=== PATIENT | male | born 1950 | race Caucasian/White ===

== ENCOUNTER → 2021-12-20 | Day surgery (SDC) | payer MEDICARE, OTHER ==
[~2021-12-20] VITALS: Ht 172.7 cm; Wt 122.0 kg
[~2021-12-20] MED LIST: APIX5TAB PO; ATOR40TA59 PO; BUSP10TA PO; CLON2TAB9 PO; DOXE150C2 PO; HYDR-2868 PO; HYDR25TA PO; HYDR25TA10 PO; IV RINGERS,LACTATED 1000ML 1,000 ML IV SCH; LOSA1TAB22 PO; METO25TA2 PO; OXCA600T9 PO; PRAZ5CAP2 PO; PROPOFOL 10 MG/ML (20ML) VIAL. IV ONE; TAMS0.4C97 PO
[2021-12-20 07:40] VITALS: BP 174/81
[2021-12-20 09:08] VITALS: BP 142/74
--- NOTE | 2021-12-23 15:07 | PATHOLOGY ---
[facility] Accession Number: [id number] . 01 Material submitted: . PART A: gastrointestinal site - GASTRIC BODY POLYP BIOPSY PART B: esophagus - DISTAL ESOPHAGUS BIOPSY. Modifiers: distal . 01 Clinical history: . DYPSHAGIA, EGD . 02 Diagnosis: A. Gastric biopsies, gastric body polyp: - Hyperplastic polyp. . B. Esophageal biopsies, distal esophagus: - Reflux changes. (JPM:[facility]; 12/23/2021) [facility] 12/23/2021 0908 Local . 02 Comment: Sections of the gastric body biopsy reveal segments of hyperplastic polyp showing congestion and no significant inflammation. There are no adenomatous changes or evidence of malignancy. . Sections of the distal esophageal biopsy reveal segments of hyperplastic squamous esophageal mucosa consistent with reflux changes. There is also a segment of gastric mucosa showing moderate chronic inflammation. There is no evidence of Cao's change, dysplasia, or malignancy. (JPM:[facility]; 12/23/2021) . 02 Electronically signed: . Dane Escalona MD, Pathologist NPI- [id number] . 01 Gross description: . A. The specimen is received in formalin, labeled "Bruno Dane, gastric body polyp BX". Received are 2 segments of red-tillman tissue measuring 0.1 and 0.3 cm in maximum dimensions. The specimen is entirely submitted in cassette A1. . B. The specimen is received in formalin, labeled "Dane Carr, distal esophagus BX". Received are 4 segments of white-tillman tissue ranging in size from 0.3-0.6 cm in maximum dimensions. The specimen is entirely submitted in cassette B1. ([facility]; 12/20/2021) NRI/NRI 12/20/2021 1603 Local . 02 Pathologist provided ICD-10: K31.7, K21.9 . 02 CPT . 355262, 233770 Specimen Comment: A courtesy copy of this report has been sent to [phone] Specimen Comment: Report sent to Specimen Comment: A duplicate report has been generated due to demographic updates. Performed at: 01 [facility] [address], [place] [id number] MD Jose Ferreira MD Phone: [phone] Performed at: 02 [facility] [address] [place], [place] [id number] MD Dane Escalona MD Phone: [phone]
== END | disposition home or self-care (01) ==
LOC: ENDOS 07:15
PROVIDERS: ATTEND Internal Medicine Gastroenterology
DX: R13.10 Dysphagia, unspecified (principal); K21.00 Gastro-esophageal reflux disease with esophagitis, without bleeding; K31.7 Polyp of stomach and duodenum; K31.89 Other diseases of stomach and duodenum; I10 Essential (primary) hypertension; I48.91 Unspecified atrial fibrillation; E78.00 Pure hypercholesterolemia, unspecified; M19.90 Unspecified osteoarthritis, unspecified site; E66.9 Obesity, unspecified; G47.30 Sleep apnea, unspecified; M10.9 Gout, unspecified; F41.9 Anxiety disorder, unspecified; F32.9 Major depressive disorder, single episode, unspecified; Z87.891 Personal history of nicotine dependence; Z79.899 Other long term (current) drug therapy; Z98.890 Other specified postprocedural states
CPT/HCPCS: 43239; 43450; J2704

== ENCOUNTER → 2022-01-07 | Outpatient (CLI) | payer MEDICARE, OTHER ==
[2021-12-20 09:08] VITALS: BP 142/74
[~2022-01-07] MED LIST changes: +BARIUM SULFATE 340 GM SUSPENSION. PO ONE; +BARIUM SULFATE 60% 355 ML SUSP PO ONE; +BARIUM SULFATE 700 MG TABLET PO ONE; -IV RINGERS,LACTATED 1000ML 1,000 ML IV SCH; -PROPOFOL 10 MG/ML (20ML) VIAL. IV ONE; +SIMETHICONE/SOD BICARB/CITRIC ACID PACKET. PO ONE
--- NOTE | 2022-01-07 08:45 | RAD ---
DG BARIUM SWALLOW Reason for study: Dysphagia. Comparison studies: None. Technique: Esophagram was performed utilizing double contrast and single contrast upright examination . Prone examination was not performed due to patient history of PTSD and intolerance of prone positio n. Fluoroscopic Time: 0.7 minutes Number of Fluoroscopic Images: 354 Findings: The swallowing apparatus function normally. No aspiration or penetration identified. No pharyngeal le sions. No esophageal mucosal abnormalities. Mild tertiary contractions noted during the upright consecutive thin barium swallows. No esophageal diverticulum or hiatal hernia. Fundus of the stomach is unremarka ble. No esophageal reflux was identified. Provocative maneuvers were not performed. Patient endorses no difficulties with swallowing of tablets, thus the barium tablet examination was d eferred. IMPRESSION: Mild dysphasia with a few tertiary contractions noted. Somewhat limited examination performed only in the upright position. Electronically signed by: Fernando Hui MD (01/07/2022 8:42 AM) [id number]
== END ==
LOC: RAD 07:56
PROVIDERS: ATTEND Internal Medicine Gastroenterology
DX: R13.10 Dysphagia, unspecified (principal); R05.9 Cough, unspecified
CPT/HCPCS: 74220